=== PATIENT | male | born 1995 | race African-American/Black ===

== ENCOUNTER → 2018-09-17 | Outpatient (CLI) | payer OTHER | END | disposition home or self-care (01) | LOC: PMGWOUND 10:34 | PROVIDERS: ATTEND Emergency Medicine Undersea and Hyperbaric Medicine | DX: L89.224 Pressure ulcer of left hip, stage 4 (principal); G80.9 Cerebral palsy, unspecified; G40.909 Epilepsy, unspecified, not intractable, without status epilepticus | CPT/HCPCS: 11043 ==